=== PATIENT | male | born 1990 | race African-American/Black ===

== ENCOUNTER 2017-10-07 05:18 | Inpatient (IN) | payer OTHER ==
[~2017-10-07] VITALS: Ht 182.9 cm; Wt 104.3 kg
--- NOTE | ~2017-10-07 | EKG ---
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
[~2017-10-07 05:18] MED LIST: FLOMAX0.4 MG PO; IBUPROFEN 600600 M1 PO; NOHOMEMEDICATIONS; PERCOCET 5-3251 EACH PO; ZOFRAN ODT4 MG PO
[2017-10-07 05:20] VITALS: BP 136/65
[2017-10-07 05:41] LABS: ABSOLUTE NEUTROPHILS 8.1 thou/uL (1.4-8.2); BASOPHILS 0.9 % (0.0-2.0); HEMATOCRIT 40.4 % (42.0-52.0); HEMOGLOBIN 13.7 gm/dL (14.0-18.0); LYMPHOCYTES 10.1 % (24.0-44.0); MCH 30.8 pg (26.0-34.0); MCHC 33.9 g/dL (28.0-37.0); MCV 90.9 fL (80.0-100.0); MONOCYTES 6.1 % (1.0-8.0); PLATELET COUNT 323 thou/uL (150-400); POLYS 82.9 % (36.0-66.0); RBC 4.45 mil/uL (4.50-6.00); RDW 14.1 % (10.5-14.5); WBC 9.7 thou/uL (4.0-11.0)
[2017-10-07 05:49] LABS: ANION GAP 11 mmol/L (7-16); BUN 16 mg/dL (7-18); CALCIUM 9.2 mg/dL (8.5-10.1); CHLORIDE 101 mmol/L (98-107); CO2 23 mmol/L (21-32); CREATININE 1.5 mg/dL (0.7-1.3); GLUCOSE 153 mg/dL (74-106); SODIUM 135 mmol/L (136-145)
[2017-10-07 05:56] LABS: ALBUMIN 4.2 g/dL (3.4-5.0); MAGNESIUM 1.5 mg/dL (1.8-2.4); SGOT 25 U/L (15-37); SGPT 16 U/L (30-65); TOTAL BILIRUBIN 0.3 mg/dL (<0.1-1.0); TOTAL PROTEIN 7.6 g/dL (6.4-8.2); TROPONIN-I < 0.04 ng/mL (<0.06)
[2017-10-07 11:22] LABS: URINE BILIRUBIN NEGATIVE (Negative); URINE BLOOD 1+ (Negative); URINE CLARITY CLEAR; URINE COLOR YELLOW; URINE GLUCOSE-RANDOM* NEGATIVE (Negative); URINE KETONES NEGATIVE (Negative); URINE LEUKOCYTES-REFLEX NEGATIVE (Negative); URINE NITRITE-REFLEX NEGATIVE (Negative); URINE PROTEIN (DIPSTICK) NEGATIVE (Negative); URINE UROBILINOGEN 0.2 E.U./dl (0.2-1.0)
[2017-10-07 11:30] LABS: AMP/METHAMP Negative (Negative); BARBITURATES Negative (Negative); BENZODIAZEPINES Negative (Negative); COCAINE POSITIVE (Negative); METHADONE Negative (Negative); OPIATES Negative (Negative); PCP Negative (Negative)
[2017-10-07 11:49] LABS: SQUAMOUS 0-3 Few /LPF (0-3)
[2017-10-07 11:51] LABS: BACTERIA-REFLEX 1-9 Few /HPF (None Seen); CASTS None Seen /LPF (None Seen); CRYSTALS None Seen /LPF (None Seen); URINE RBC 0-2 Rare /HPF (0-2); URINE WBC-REFLEX 0-5 Rare /HPF (0-5)
[2017-10-07 20:09] VITALS: BP 133/77
[2017-10-08 02:06] LABS: GLYCOHEMOGLOBIN (HGB A1C) 5.4 % (4.8-5.6)
== END 2017-10-07 18:45 | disposition left against medical advice (07) | DRG 918 ==
LOC: ER 05:18 → EROBS 06:24 → ICU 10:55
PROVIDERS: Emergency Medicine; Nurse Practitioner
DX: T43.591A Poisoning by other antipsychotics and neuroleptics, accidental (unintentional), initial encounter (principal); N17.9 Acute kidney failure, unspecified; E83.42 Hypomagnesemia; F60.7 Dependent personality disorder; F17.210 Nicotine dependence, cigarettes, uncomplicated; Z53.21 Procedure and treatment not carried out due to patient leaving prior to being seen by health care provider; E05.90 Thyrotoxicosis, unspecified without thyrotoxic crisis or storm; Z79.899 Other long term (current) drug therapy; Y92.89 Other specified places as the place of occurrence of the external cause; Z59.0 Homelessness; Z88.8 Allergy status to other drugs, medicaments and biological substances; Z87.442 Personal history of urinary calculi
CPT/HCPCS: 10078